=== PATIENT | male | born 1960 | race Caucasian/White ===

== ENCOUNTER 2017-10-25 06:29 | Emergency (ER) | payer OTHER, MEDICAID ==
[2017-10-25] MEDS: LIDOCAINE 2% 20 ML UROJET SYRINGE MM ×2 (07:30→10:24)
[2017-10-25] MEDS ORDERED: LORAZEPAM 2 MG INJ (08:29)
[2017-10-25] MEDS: LORAZEPAM 1 MG TAB PO (08:43)
[2017-10-25] MEDS: SOD CHLORIDE 0.9% 1,000 ML IV (09:05)
[2017-10-25] MEDS: KETOROLAC 30 MG INJ IV (09:05)
[2017-10-25] MEDS: ONDANSETRON 4 MG INJ IV (09:05)
[2017-10-25] MEDS: HYDROmorphONE 0.5 MG/0.5 ML SYG IV (09:05)
[2017-10-25 09:14] LABS: ADD UMIC YES; UR ASCORBIC ACID NEGATIVE (NEGATIVE); UR BILIRUBIN (Dip) NEGATIVE (NEGATIVE); UR BLOOD (Dip) 3+ mg/dL (NEGATIVE); UR BUDDING YEAST FEW /HPF (NONE SEEN); UR CLARITY SLIGHTLY CLOUDY (CLEAR); UR COLOR YELLOW (YELLOW); UR GLUCOSE (Dip) NEGATIVE (NEGATIVE); UR KETONES (Dip) NEGATIVE (NEGATIVE); UR LEUKOCYTE ESTERASE (Dip) TRACE Leu/ul (NEGATIVE); UR NITRITE (Dip) NEGATIVE (NEGATIVE); UR RBC > 182 /HPF (0-5); UR SPECIFIC GRAVITY (Dip) 1.015 (1.003-1.030); UR TOTAL PROTEIN (Dip) 1+ mg/dl (NEGATIVE); UR UROBILINOGEN (Dip) 1+ mg/dL (NEGATIVE); UR WBC 25 /HPF (0-5)
[2017-10-25] MEDS: LORAZEPAM 2 MG INJ IM (09:27)
[2017-10-25] MEDS: TAMSULOSIN (SR) 0.4 MG CAP PO (09:30)
[2017-10-25] MEDS: CEFTRIAXONE 1 GM/50 ML (PMX) 50 ML IVPB (09:30)
[2017-10-25] MEDS ORDERED: DIAZEPAM 5 MG/ML SYG (10:09)
[2017-10-25] MEDS: DIAZEPAM 5 MG/ML SYG IV (10:41)
[2017-10-25 15:41] LABS: OPIATES Negative (NEGATIVE)
[2017-10-25 15:43] LABS: AMPHETAMINE/METHAMPHETAMINE POSITIVE (NEGATIVE); BARBITURATES Negative (NEGATIVE); BENZODIAZEPINES Negative (NEGATIVE); CANNABINOIDS Positive (NEGATIVE); COCAINE Negative (NEGATIVE)
== END 2017-10-25 16:25 | disposition home or self-care (01) ==
LOC: E/R 06:29
DX: N20.0 Calculus of kidney (principal); I10 Essential (primary) hypertension; R40.2142 Coma scale, eyes open, spontaneous, at arrival to emergency department; R40.2252 Coma scale, best verbal response, oriented, at arrival to emergency department; R40.2362 Coma scale, best motor response, obeys commands, at arrival to emergency department
CPT/HCPCS: 51702; 74176; 80307; 81001; 87086; 96372; 96374; 96375; 99285-25

== ENCOUNTER 2017-10-26 18:35 | Emergency (ER) | payer SELFPAY, OTHER | END 2017-10-26 22:00 | disposition left against medical advice (07) | LOC: E/R 18:35 | DX: Z53.21 Procedure and treatment not carried out due to patient leaving prior to being seen by health care provider (principal) ==

== ENCOUNTER 2017-11-05 01:55 | Emergency (ER) | payer SELFPAY | END 2017-11-05 01:59 | disposition left against medical advice (07) | LOC: E/R 01:55 | DX: Z53.21 Procedure and treatment not carried out due to patient leaving prior to being seen by health care provider (principal) ==

== ENCOUNTER 2018-05-29 01:57 | Emergency (ER) | payer OTHER ==
[2018-05-29 03:59] LABS: ADD MAN DIFF? NO
[2018-05-29 04:01] LABS: WHITE BLOOD COUNT 7.9 10^3/ul (4.8-10.8)
[2018-05-29 04:01] LABS: BASOPHIL # 0.1 10^3/ul (0.0-0.1); BASOPHILS % 0.9 % (0.0-2.0); EOSINOPHILS # 0.4 10^3/ul (0.0-0.5); EOSINOPHILS % 5.6 % (0.0-7.0); HEMATOCRIT 52.3 % (42.0-52.0); LYMPHOCYTES # 1.7 10^3/ul (0.8-2.9); MEAN CORPUSCULAR HEMOGLOBIN 26.9 pg (29.0-33.0); MEAN CORPUSCULAR HGB CONC 32.5 g/dl (32.0-37.0); MEAN CORPUSCULAR VOLUME 82.9 fl (82.0-101.0); MEAN PLATELET VOLUME 10.9 fl (7.4-10.4); MONOCYTES % 12.9 % (0.0-11.0); NEUTROPHIL # 4.7 10^3/ul (1.6-7.5); NEUTROPHILS % 59.2 % (39.0-77.0); PLATELET COUNT 248 10^3/UL (140-415); RED BLOOD COUNT 6.31 10^6/ul (4.70-6.10)
[2018-05-29 04:19] LABS: ANION GAP 10 (8-16); BLOOD UREA NITROGEN 13 mg/dl (7-20); CALCIUM 9.5 mg/dl (8.4-10.2); CARBON DIOXIDE 32 mmol/L (21-31); CHLORIDE 104 mmol/L (97-110); CREATININE 0.59 mg/dl (0.61-1.24); GLUCOSE 112 mg/dl (70-220); POTASSIUM 4.5 mmol/L (3.5-5.1); SODIUM 141 mmol/L (135-144)
[2018-05-29 04:20] LABS: ETHANOL < 10.0 mg/dl
[2018-05-29 04:30] LABS: TROPONIN-I 0.017 ng/ml (0.000-0.120)
[2018-05-29] MEDS ORDERED: ACETAMINOPHEN 325 MG TAB PO (04:30)
[2018-05-29 04:49] LABS: INR 1.08; PROTIME 14.1 Sec (11.9-14.9); PT RATIO 1.1
== END 2018-05-29 06:35 | disposition left against medical advice (07) ==
LOC: E/R 01:57
DX: R07.9 Chest pain, unspecified (principal)
CPT/HCPCS: 36415; 71045; 80048; 80307; 84484; 85025; 85610; 85730; 93005; 99285-25